=== PATIENT | male | born 1965 | race Caucasian/White ===

== ENCOUNTER → 2017-07-29 | Outpatient (CLI) | payer BC ==
--- NOTE | 2017-07-29 11:05 | US ---
EXAMINATION TYPE: US kidneys/renal and bladder DATE OF EXAM: 07/29/2017 COMPARISON: NONE CLINICAL HISTORY: R94.4 ABN KIDNEY FUNCTIONS. EXAM MEASUREMENTS: Right Kidney: 13.8 x 4.6 x 6.3 cm Left Kidney: 12.8 x 5.8 x 6.2 cm Right Kidney: No hydronephrosis, nephrolithiasis or masses seen Left Kidney: lobular contour with mass affect lower pole measures 3.1 x 2.9 x 2.5 cm, normal tissue v ersus mass. No hydronephrosis or nephrolithiasis. Bladder: wnl Bilateral Jets seen: Yes IMPRESSION: Lobulated morphology of the lower pole the left kidney measuring 3.1 cm. This may represent a dromeda ry hump. Mass not excluded recommend CT scan.
== END ==
LOC: RADUSWWP 10:05
PROVIDERS: ATTEND Family Medicine
DX: R94.4 Abnormal results of kidney function studies (principal)
CPT/HCPCS: 76770

== ENCOUNTER → 2017-08-26 | Outpatient (CLI) | payer BC ==
--- NOTE | 2017-08-27 12:50 | CT ---
EXAMINATION TYPE: CT abdomen pelvis wo/w con DATE OF EXAM: 08/26/2017 COMPARISON: Renal ultrasound dated 07/29/2017 HISTORY: Abnormal US of kidneys. CT DLP: 3074.5 mGycm Automated exposure control for dose reduction was used. TECHNIQUE: Helical acquisition of images was performed from the lung bases through the pelvis. CONTRAST: Performed with Oral Contrast and without and with IV Contrast, patient injected with 100 mL of Omnipa que 300. FINDINGS: LUNG BASES: No significant abnormality is appreciated. LIVER/GB: Hepatic parenchyma is unremarkable. Gallbladder is partially contracted. No evidence of cho lelithiasis or intrahepatic biliary ductal dilatation. No extrahepatic biliary ductal dilatation. PANCREAS: Pancreas is of homogeneous enhancement and morphology without ductal dilatation. SPLEEN: Unremarkable and nonenlarged. Spleen measures 11.2 cm in craniocaudal dimension. ADRENALS: No significant abnormality is seen. KIDNEYS: Lobulated contour of the left kidney relates to a normal variant dromedary hump. No renal ma ss. Kidneys enhance and excrete symmetrically. No nephrolithiasis or hydronephrosis. FREE AIR: No free air is visualized. RETROPERITONEAL ADENOPATHY: None visualized REPRODUCTIVE ORGANS: Prostate gland is somewhat heterogenous but nonenlarged. Bilateral fat filled sm all inguinal hernias are seen. URINARY BLADDER: Urinary bladder is decompressed and incompletely evaluated. PELVIC ADENOPATHY: None visualized. OSSEOUS STRUCTURES: Mild multilevel degenerative changes are seen of the thoracolumbar spine. BOWEL: Small hiatal hernia is noted. Bowel is nonenlarged without bowel wall thickening. No evidence of bowel obstruction. IMPRESSION: 1. NO EVIDENCE OF RENAL MASS. THE PREVIOUSLY DESCRIBED LOBULATED MORPHOLOGY OF THE LOWER POLE OF THE LEFT KIDNEY RELATES TO A DROMEDARY HUMP, NORMAL ANATOMIC VARIANT. 2. NO EVIDENCE OF NEPHROLITHIASIS OR HYDRONEPHROSIS. KIDNEYS ENHANCE AND EXCRETE SYMMETRICALLY. 3. SMALL HIATAL HERNIA.
== END ==
LOC: RADCTMAIN 16:19
PROVIDERS: ATTEND Family Medicine
DX: N28.89 Other specified disorders of kidney and ureter (principal); K44.9 Diaphragmatic hernia without obstruction or gangrene
CPT/HCPCS: 74178; Q9967

== ENCOUNTER → 2020-05-22 | Outpatient (CLI) | payer BC ==
--- NOTE | 2020-05-22 14:47 | US ---
EXAMINATION TYPE: US kidneys/renal and bladder DATE OF EXAM: 05/22/2020 COMPARISON: US & CT CLINICAL HISTORY: N28.9 DISORDER OF KIDNEY AND URETER. Abn labs EXAM MEASUREMENTS: Right Kidney: 12.6 x 5.0 x 5.5 cm Left Kidney: 12.6 x 6.3 x 6.3 cm Right Kidney: Appeared wnl Left Kidney: Appeared wnl, probable dromedary hump visualized as seen on previous CT Bladder: wnl Bilateral Jets seen: Yes There is no evidence for hydronephrosis at this point in time. No nephrolithiasis is seen. No marry s are identified. The urinary bladder is anechoic. Bilateral ureteral jets are seen. IMPRESSION: No abnormality identified.
== END | disposition home or self-care (01) ==
LOC: RADUSWWP 12:47
PROVIDERS: ATTEND Family Medicine
DX: N28.9 Disorder of kidney and ureter, unspecified (principal)
CPT/HCPCS: 76770

== ENCOUNTER → 2020-06-03 | Outpatient (CLI) | payer BC ==
[2020-06-03 19:03] LABS: African American GFR (CKD) 72.7 (60.0-200.0); BUN/Creat Ratio 13.85 Ratio (12.00-20.00); Calcium 9.7 mg/dL (8.7-10.3); Non-African American GFR(CKD) 62.7 (60.0-200.0); Potassium 3.9 mmol/L (3.5-5.5)
[2020-06-04] LABS: Total Volume 24 Hour,Urine 1800 mL
[2020-06-04 00:19] LABS: Creatinine 24 Hour,Urine 2.47 g/24Hr (1.00-2.00)
[2020-06-04 01:09] LABS: Total Protein 24 Hour,Urine 111.6 mg/24Hr
== END | disposition home or self-care (01) ==
LOC: LABWHC1 09:50 → EDSTATUS 14:07
PROVIDERS: ATTEND Family Medicine
DX: N28.9 Disorder of kidney and ureter, unspecified (principal)
CPT/HCPCS: 36415; 80048; 81050; 82570; 84156